=== PATIENT | female | born 1970 | race Caucasian/White ===

== ENCOUNTER 2017-12-08 15:03 | Outpatient (CLI) | payer OTHER ==
[~2017-12-08 15:03] MED LIST: CALC1TAB PO; EXEM25TA5 PO; VENL-191 PO
[2017-12-08 15:34] LABS: BASOPHILS # (AUTO) 0.1 X10'3 (0-0.2); BASOPHILS % (AUTO) 0.7 % (0-1); EOSINOPHILS # (AUTO) 0.2 X10'3 (0-0.9); EOSINOPHILS % (AUTO) 2.9 % (0-6); HEMATOCRIT 40.2 % (35.0-45.0); HEMOGLOBIN 13.8 g/dl (12.0-16.0); LYMPHOCYTES # (AUTO) 2.7 X10'3 (1.1-4.8); LYMPHOCYTES % (AUTO) 36.2 % (21-51); MEAN CORPUSCULAR HEMOGLOBIN 32.9 PG (27.0-31.0); MEAN CORPUSCULAR HGB CONC 34.3 % (33.0-36.5); MEAN CORPUSCULAR VOLUME 96.2 FL (78-98); MONOCYTES # (AUTO) 0.4 X10'3 (0-0.9); MONOCYTES % (AUTO) 5.5 % (2-12); NEUTROPHILS % (AUTO) 54.7 % (42-75); PLATELET COUNT 348 X10'3 (140-440); RED BLOOD COUNT 4.17 X10'6 (4.20-5.60); RED CELL DISTRIBUTION WIDTH 13.2 % (11.5-14.5); WHITE BLOOD COUNT 7.4 X10'3 (4.5-11.0)
[2017-12-08 15:58] LABS: ALANINE AMINOTRANSFERASE 23 U/L (12-78); ALBUMIN 3.9 G/DL (3.4-5.0); ALBUMIN/GLOBULIN RATIO 1.3 (1.1-1.5); ALKALINE PHOSPHATASE 43 IU/L (46-116); ANION GAP 6 (8-16); ASPARTATE AMINO TRANSFERASE 14 U/L (10-37); BILIRUBIN,TOTAL 0.2 MG/DL (0.1-1.0); BLOOD UREA NITROGEN 12 MG/DL (7-18); BUN/CREATININE RATIO 11.9 (6.6-38.0); CALCIUM 9.1 MG/DL (8.5-10.1); CHLORIDE 105 MMOL/L (99-107); CREATININE 1.01 MG/DL (0.40-0.90); GLUCOSE 106 MG/DL (70-104); SODIUM 143 MMOL/L (135-145); TOTAL CARBON DIOXIDE 31.6 MMOL/L (24-32); eGFR 58 ML/MIN
== END 2017-12-08 23:59 | disposition home or self-care (01) ==
LOC: LAB 15:03
PROVIDERS: ATTEND Internal Medicine
DX: M85.80 Other specified disorders of bone density and structure, unspecified site (principal); Z85.3 Personal history of malignant neoplasm of breast
CPT/HCPCS: 36415; 80053; 85025

== ENCOUNTER 2018-01-02 11:19 | Day surgery (SDC) | payer OTHER ==
[~2018-01-02] VITALS: Ht 163.8 cm; Wt 68.0 kg
[2018-01-02] MEDS ORDERED: DENOSUMAB 60 MG/ML inj. SQ ONE (11:45)
[2018-01-02] MEDS ORDERED: diphenhydrAMINE 50 mg/ml inj IV PRN (11:45)
[2018-01-02] MEDS ORDERED: methylPREDNISolone sod succ 125mg/2ml vial IV PRN (11:50)
[2018-01-02] MEDS ORDERED: hydrocortisone sod succ/PF 100mg/2ml inj. IV PRN (11:50)
[2018-01-02 12:14] VITALS: BP 134/79
[2018-01-02 12:25] VITALS: BP 134/79
== END 2018-01-02 12:30 | disposition home or self-care (01) ==
LOC: SSTAY O 11:19
PROVIDERS: ATTEND Internal Medicine
DX: M85.80 Other specified disorders of bone density and structure, unspecified site (principal); F32.9 Major depressive disorder, single episode, unspecified; Z85.3 Personal history of malignant neoplasm of breast
CPT/HCPCS: 96372; J0897

== ENCOUNTER 2018-08-24 15:52 | Day surgery (SDC) | payer OTHER ==
[~2018-08-24] VITALS: Ht 162.6 cm; Wt 72.0 kg
[2018-08-24] MEDS ORDERED: hydrocortisone sod succ/PF 100mg/2ml inj. IV PRN (16:25)
[2018-08-24] MEDS ORDERED: DENOSUMAB 60 MG/ML inj. SQ ONE (16:25)
[2018-08-24] MEDS ORDERED: methylPREDNISolone sod succ 125mg/2ml vial IV PRN (16:25)
[2018-08-24] MEDS ORDERED: diphenhydrAMINE 50 mg/ml inj IV PRN (16:25)
[2018-08-24 16:57] VITALS: BP 135/82
[2018-08-24] MEDS ORDERED: CHOL10002 PO (16:59)
== END 2018-08-24 17:18 | disposition home or self-care (01) ==
LOC: SSTAY O 15:52
PROVIDERS: ATTEND Internal Medicine
DX: M85.80 Other specified disorders of bone density and structure, unspecified site (principal); G64 Other disorders of peripheral nervous system; F32.1 Major depressive disorder, single episode, moderate; C50.912 Malignant neoplasm of unspecified site of left female breast
CPT/HCPCS: 96372; J0897

== ENCOUNTER 2018-10-17 10:28 | Outpatient (CLI) | payer OTHER ==
[~2018-10-17 10:28] MED LIST changes: +CHOL10002 PO
== END 2018-10-17 23:59 | disposition home or self-care (01) ==
LOC: RAD 10:28
PROVIDERS: ATTEND Specialist
DX: M51.36 Other intervertebral disc degeneration, lumbar region (principal); M41.86 Other forms of scoliosis, lumbar region; Z87.891 Personal history of nicotine dependence; Z91.048 Other nonmedicinal substance allergy status; Z88.1 Allergy status to other antibiotic agents; Z88.6 Allergy status to analgesic agent
CPT/HCPCS: 72110

== ENCOUNTER 2018-12-28 09:37 | Day surgery (SDC) | payer OTHER ==
[2018-12-26 14:41] LABS: CLARITY,URINE CLEAR (Clear); COLOR,URINE STRAW (Yellow); GLUCOSE, URINE NEGATIVE (Neg); KETONES,URINE NEGATIVE (Neg); LEUKOCYTE ESTERASE ,URINE NEGATIVE (Neg); NITRITES, URINE NEGATIVE (Neg); OCCULT BLOOD,URINE TRACE-INTACT (Neg); PROTEIN,URINE NEGATIVE (Neg); UROBILINOGEN,URINE 0.2 E.U/dL (0.2-1.0)
[2018-12-26 15:04] LABS: UA COLLECTION TYPE VOIDED
[2018-12-26 15:08] LABS: BASOPHILS % (AUTO) 0.1 % (0-1); EOSINOPHILS # (AUTO) 0.1 X10'3 (0-0.9); EOSINOPHILS % (AUTO) 1.7 % (0-6); LYMPHOCYTES # (AUTO) 2.2 X10'3 (1.1-4.8); LYMPHOCYTES % (AUTO) 29.5 % (21-51); MEAN CORPUSCULAR HEMOGLOBIN 34.1 PG (27.0-31.0); MEAN CORPUSCULAR HGB CONC 34.5 g/dL (33.0-36.5); MEAN CORPUSCULAR VOLUME 98.8 FL (78-98); MEAN PLATELET VOLUME 7.7 FL (7.4-10.4); MONOCYTES # (AUTO) 0.5 X10'3 (0-0.9); MONOCYTES % (AUTO) 6.7 % (2-12); NEUTROPHILS # (AUTO) 4.7 X10'3 (1.8-7.7); PRE OP HEMATOCRIT 40.8 % (35.0-45.0); PRE OP HEMOGLOBIN 14.1 g/dL (12.0-16.0); PRE OP PLATELET COUNT 349 X10'3 (140-440); PRE OP PROTIME 10.1 SECONDS (9.0-12.0); RED BLOOD COUNT 4.13 X10'6 (4.20-5.60); RED CELL DISTRIBUTION WIDTH 14.3 % (11.5-14.5)
[2018-12-26 15:14] LABS: ALBUMIN 3.7 G/DL (3.4-5.0); ALKALINE PHOSPHATASE 40 IU/L (46-116); BLOOD UREA NITROGEN 17 MG/DL (7-18); BUN/CREATININE RATIO 19.5 (6.6-38.0); CALCIUM 9.6 MG/DL (8.5-10.1); CHLORIDE 99 MMOL/L (99-107); CREATININE 0.87 MG/DL (0.40-0.90); PRE OP ALT 25 U/L (30-65); PRE OP ANION GAP 11 (8-16); PRE OP AST 16 U/L (10-37); PRE OP BILIRUB, TOTAL 0.3 MG/DL (0.0-1.0); PRE OP GLUCOSE 105 MG/DL (70-104); PRE OP SODIUM 140 MMOL/L (135-145); TOTAL PROTEIN 7.5 G/DL (6.4-8.2); eGFR 69 ML/MIN
[2018-12-26 15:21] LABS: BACTERIA,URINE NONE SEEN /HPF (Neg); RBC,URINE 0-2 /HPF (0-2); SQUAMOUS EPITHELIAL CELL,UR FEW /LPF (FEW); WBC,URINE NONE SEEN /HPF (0-4)
[2018-12-28] VITALS (10 sets, daily range): BP systolic 122–161; BP diastolic 70–104
[~2018-12-28] VITALS: Ht 162.6 cm; Wt 67.7 kg
[~2018-12-28 09:37] MED LIST changes: +GABA300C PO; +HYDR-4353 PO; +IBUP-1984 PO; +LIDOcaine/PRILOcaine 5gm cream TP ONE; +RANI150T44 PO; +VANCOMYCIN INJ 1000 MG in NORMAL SALINE 250ml IV.SOLN IV ONE; -VENL-191 PO; +VENL37.589 PO; +ceFAZolin inj. 2,000 MG in dextrose 5%-water 100 ML IV ONE; +famotidine 20mg tablet PO ONE; +ringers solution, lacted 1,000 ML IV SCH
[2018-12-28] MEDS ORDERED: meperidine/PF 25mg/ml syringe IV STA (10:34)
[2018-12-28] MEDS ORDERED: Thrombin (Bovine) 5,000 unit vial TP ONE (11:37)
[2018-12-28] MEDS ORDERED: ceFAZolin 1000mg inj ONE (11:37)
[2018-12-28] MEDS ORDERED: gelatin sponge, absorbable (Gelfoam 100) sponge TP ONE (11:37)
[2018-12-28] MEDS ORDERED: midazolam 2 mg/2 ml injection ONE (11:46)
[2018-12-28] MEDS ORDERED: fentaNYL /PF 50mcg/ml 5ml ampule ONE (11:46)
[2018-12-28] MEDS ORDERED: rocuronium 10mg/ml inj IV ONE (11:51)
[2018-12-28] MEDS ORDERED: propofol inj 20 ML IV ONE (11:51)
[2018-12-28] MEDS ORDERED: LIDOcaine 2% (20mg/ml) 5ml vial ONE (11:51)
[2018-12-28] MEDS ORDERED: methylPREDNISolone sod succ 125mg/2ml vial ONE (13:38)
[2018-12-28] MEDS ORDERED: BUPIVAcaine/PF 2.5mg/ml (0.25%) 10ml vial ONE (14:49)
--- NOTE | 2018-12-28 15:15 | NUR ---
Received from OR via BED, accompanied by Anesthesiologist DR FORREST and report given by Anesthesiolgist. PT DROWSY, APPROPRIATE, DENIES PAIN, IRIZARRY'S. Addendum: 12/28/18 at 1536 by Zunilda Chin RN Amended: Links added.
[2018-12-28] MEDS ORDERED: glycopyrrolate 0.2mg/ml inj ONE (15:30)
[2018-12-28] MEDS ORDERED: dexamethasone sod phosphate 4mg/ml inj. ONE (15:30)
[2018-12-28] MEDS ORDERED: neostigmine methylsulfate 1 MG/ML 10ml vial ONE (15:30)
[2018-12-28] MEDS ORDERED: ondansetron/PF 4mg/2ml inj ONE (15:30)
[2018-12-28] MEDS ORDERED: ePHEDrine 50MG/ML INJ. ONE (15:30)
[2018-12-28] MEDS ORDERED: ringers solution, lacted 1,000 ML IV SCH (15:41)
[2018-12-28] MEDS ORDERED: HYDROmorphone inj. 0.5 MG/0.5 ML DISP.SYRIN IV PRN ×2 (15:45)
[2018-12-28] MEDS ORDERED: ketorolac trometh. 30mg/ml inj. IV ONE (15:45)
[2018-12-28] MEDS ORDERED: meperidine/PF 25mg/ml syringe IV PRN ×2 (15:45)
[2018-12-28] MEDS ORDERED: ondansetron/PF 4mg/2ml inj IV PRN (15:45)
[2018-12-28] MEDS ORDERED: HYDROcodone/acetaminophen 10/325mg tab PO ONE (16:30)
== END 2018-12-28 16:45 | disposition home or self-care (01) ==
LOC: PAS 09:37
PROVIDERS: ATTEND Orthopaedic Surgery Orthopaedic Surgery of the Spine
DX: M47.26 Other spondylosis with radiculopathy, lumbar region (principal); M48.061 Spinal stenosis, lumbar region without neurogenic claudication; F17.210 Nicotine dependence, cigarettes, uncomplicated; M71.38 Other bursal cyst, other site; G62.9 Polyneuropathy, unspecified; Z90.10 Acquired absence of unspecified breast and nipple; Z98.890 Other specified postprocedural states; Z85.3 Personal history of malignant neoplasm of breast
CPT/HCPCS: 36415; 63047; 71046; 72100; 76000; 80053; 81001; 82948; 85025; 85610; 85730; 93005; J0690; J1100; J1885; J2001; J2175; J2250; J2405; J2704; J2710; J2930; J3010; J3370; J3490; J7060; J7120; A6196; A7000

== ENCOUNTER 2019-02-15 13:59 | Outpatient (CLI) | payer OTHER ==
[~2019-02-15 13:59] MED LIST changes: -LIDOcaine/PRILOcaine 5gm cream TP ONE; -VANCOMYCIN INJ 1000 MG in NORMAL SALINE 250ml IV.SOLN IV ONE; -ceFAZolin inj. 2,000 MG in dextrose 5%-water 100 ML IV ONE; -famotidine 20mg tablet PO ONE; -ringers solution, lacted 1,000 ML IV SCH
[2019-02-15 14:45] LABS: BASOPHILS % (AUTO) 0.5 % (0-1); EOSINOPHILS # (AUTO) 0.1 X10'3 (0-0.9); EOSINOPHILS % (AUTO) 1.9 % (0-6); HEMATOCRIT 38.2 % (35.0-45.0); HEMOGLOBIN 13.5 g/dl (12.0-16.0); LYMPHOCYTES # (AUTO) 2.3 X10'3 (1.1-4.8); LYMPHOCYTES % (AUTO) 35.2 % (21-51); MEAN CORPUSCULAR HEMOGLOBIN 34.5 PG (27.0-31.0); MEAN CORPUSCULAR HGB CONC 35.2 g/dL (33.0-36.5); MEAN CORPUSCULAR VOLUME 97.9 FL (78-98); MEAN PLATELET VOLUME 7.9 FL (7.4-10.4); MONOCYTES # (AUTO) 0.6 X10'3 (0-0.9); NEUTROPHILS # (AUTO) 3.6 X10'3 (1.8-7.7); NEUTROPHILS % (AUTO) 53.4 % (42-75); PLATELET COUNT 368 X10'3 (140-440); RED CELL DISTRIBUTION WIDTH 12.7 % (11.5-14.5); WHITE BLOOD COUNT 6.7 X10'3 (4.5-11.0)
[2019-02-15 14:58] LABS: ALANINE AMINOTRANSFERASE 27 U/L (12-78); ALBUMIN 3.4 G/DL (3.4-5.0); ALBUMIN/GLOBULIN RATIO 0.9 (1.1-1.5); ALKALINE PHOSPHATASE 63 IU/L (46-116); ANION GAP 7 (8-16); ASPARTATE AMINO TRANSFERASE 18 U/L (10-37); BILIRUBIN,TOTAL 0.2 MG/DL (0.1-1.0); BLOOD UREA NITROGEN 16 MG/DL (7-18); BUN/CREATININE RATIO 17.2 (6.6-38.0); CALCIUM 9.4 MG/DL (8.5-10.1); CHLORIDE 104 MMOL/L (99-107); CREATININE 0.93 MG/DL (0.40-0.90); GLUCOSE 83 MG/DL (70-104); POTASSIUM 3.8 MMOL/L (3.5-5.1); SODIUM 143 MMOL/L (135-145); TOTAL CARBON DIOXIDE 32.5 MMOL/L (24-32); eGFR 64 ML/MIN
== END 2019-02-15 23:59 | disposition home or self-care (01) ==
LOC: LAB 13:59
PROVIDERS: ATTEND Internal Medicine
DX: C50.912 Malignant neoplasm of unspecified site of left female breast (principal); M85.80 Other specified disorders of bone density and structure, unspecified site; Z87.891 Personal history of nicotine dependence; Z79.899 Other long term (current) drug therapy; Z85.3 Personal history of malignant neoplasm of breast; Z90.10 Acquired absence of unspecified breast and nipple
CPT/HCPCS: 36415; 80053; 82306; 85025

== ENCOUNTER 2019-08-23 15:50 | Outpatient (CLI) | payer OTHER ==
[~2019-08-23 15:50] MED LIST changes: +RANI-648 PO; -RANI150T44 PO; +UBID1CAP54 PO
[2019-08-23 16:27] LABS: ALANINE AMINOTRANSFERASE 30 U/L (12-78); ALBUMIN 3.8 G/DL (3.4-5.0); ALKALINE PHOSPHATASE 53 IU/L (46-116); ANION GAP 9 (8-16); ASPARTATE AMINO TRANSFERASE 20 U/L (10-37); BILIRUBIN,TOTAL 0.3 MG/DL (0.1-1.0); BLOOD UREA NITROGEN 15 MG/DL (7-18); BUN/CREATININE RATIO 16.7 (6.6-38.0); CALCIUM 9.4 MG/DL (8.5-10.1); CHLORIDE 103 MMOL/L (99-107); GLUCOSE 105 MG/DL (70-104); POTASSIUM 4.2 MMOL/L (3.5-5.1); SODIUM 141 MMOL/L (135-145); TOTAL CARBON DIOXIDE 28.7 MMOL/L (24-32); TOTAL PROTEIN 7.7 G/DL (6.4-8.2); eGFR 66 ML/MIN
== END 2019-08-23 23:59 | disposition home or self-care (01) ==
LOC: LAB 15:50
PROVIDERS: ATTEND Internal Medicine
DX: C50.912 Malignant neoplasm of unspecified site of left female breast (principal); M85.88 Other specified disorders of bone density and structure, other site
CPT/HCPCS: 36415; 80053; 82306

== ENCOUNTER 2019-10-18 10:18 | Day surgery (SDC) | payer OTHER ==
[2019-10-18] MEDS ORDERED: DENOSUMAB 60 MG/ML inj. SQ ONE (10:30)
[2019-10-18 10:47] VITALS: BP 140/82
== END 2019-10-18 10:58 | disposition home or self-care (01) ==
LOC: PAS 10:18
PROVIDERS: ATTEND Internal Medicine
DX: M85.88 Other specified disorders of bone density and structure, other site (principal)
CPT/HCPCS: 96372; J0897

== ENCOUNTER 2020-05-01 14:06 | Outpatient (CLI) | payer OTHER ==
[~2020-05-01 14:06] MED LIST changes: -HYDR-4353 PO; -IBUP-1984 PO; -RANI-648 PO
[2020-05-01 16:27] LABS: ALANINE AMINOTRANSFERASE 54 U/L (12-78); ALBUMIN 3.5 G/DL (3.4-5.0); ALKALINE PHOSPHATASE 42 IU/L (46-116); ANION GAP 7 (8-16); ASPARTATE AMINO TRANSFERASE 39 U/L (10-37); BILIRUBIN,TOTAL 0.5 MG/DL (0.1-1.0); BLOOD UREA NITROGEN 17 MG/DL (7-18); BUN/CREATININE RATIO 16.5 (6.6-38.0); CALCIUM 9.2 MG/DL (8.5-10.1); CHLORIDE 105 MMOL/L (99-107); CREATININE 1.03 MG/DL (0.40-0.90); GLUCOSE 102 MG/DL (70-104); POTASSIUM 4.1 MMOL/L (3.5-5.1); SODIUM 142 MMOL/L (135-145); TOTAL CARBON DIOXIDE 29.8 MMOL/L (24-32); eGFR 56 ML/MIN
== END 2020-05-01 23:59 | disposition home or self-care (01) ==
LOC: LAB 14:06
PROVIDERS: ATTEND Internal Medicine
DX: C50.912 Malignant neoplasm of unspecified site of left female breast (principal)
CPT/HCPCS: 36415; 80053

== ENCOUNTER 2021-05-21 13:08 | Outpatient (CLI) | payer BC ==
[2021-05-21 14:01] LABS: ALANINE AMINOTRANSFERASE 50 U/L (12-78); ALBUMIN 3.6 G/DL (3.4-5.0); ALBUMIN/GLOBULIN RATIO 0.9 (1.1-1.5); ALKALINE PHOSPHATASE 74 IU/L (46-116); ASPARTATE AMINO TRANSFERASE 44 U/L (10-37); BILIRUBIN,TOTAL 0.6 MG/DL (0.1-1.0); TOTAL PROTEIN 7.7 G/DL (6.4-8.2)
[2021-05-21 14:04] LABS: BILIRUBIN,DIRECT 0.4 MG/DL (0-0.3)
== END 2021-05-21 23:59 | disposition home or self-care (01) ==
LOC: LAB 13:08
PROVIDERS: ATTEND Internal Medicine
DX: C50.912 Malignant neoplasm of unspecified site of left female breast (principal); I71.9 Aortic aneurysm of unspecified site, without rupture
CPT/HCPCS: 36415; 80076

== ENCOUNTER 2021-11-18 11:47 | Outpatient (CLI) | payer BC ==
[2021-11-18 12:42] LABS: ALANINE AMINOTRANSFERASE 48 U/L (12-78); ALKALINE PHOSPHATASE 65 IU/L (46-116); ASPARTATE AMINO TRANSFERASE 51 U/L (10-37); BILIRUBIN,DIRECT 0.3 MG/DL (0-0.3); BILIRUBIN,TOTAL 0.7 MG/DL (0.1-1.0)
== END 2021-11-18 23:59 | disposition home or self-care (01) ==
LOC: LAB 11:47
PROVIDERS: ATTEND Internal Medicine
DX: C50.912 Malignant neoplasm of unspecified site of left female breast (principal)
CPT/HCPCS: 36415; 80076; 82306

== ENCOUNTER 2022-05-13 14:09 | Outpatient (CLI) | payer BC | END 2022-05-13 23:59 | disposition home or self-care (01) | LOC: RAD 14:09 | PROVIDERS: ATTEND Family Medicine | DX: M47.816 Spondylosis without myelopathy or radiculopathy, lumbar region (principal); M41.86 Other forms of scoliosis, lumbar region; M51.36 Other intervertebral disc degeneration, lumbar region; M12.88 Other specific arthropathies, not elsewhere classified, other specified site | CPT/HCPCS: 72100 ==

== ENCOUNTER 2022-06-03 10:51 | Outpatient (CLI) | payer BC ==
[2022-06-03 11:34] LABS: ALANINE AMINOTRANSFERASE 58 U/L (12-78); ALBUMIN/GLOBULIN RATIO 1.1 (1.1-1.5); ALKALINE PHOSPHATASE 62 IU/L (46-116); ASPARTATE AMINO TRANSFERASE 50 U/L (10-37); BILIRUBIN,DIRECT 0.3 MG/DL (0-0.3); BILIRUBIN,TOTAL 0.8 MG/DL (0.1-1.0); TOTAL PROTEIN 7.7 G/DL (6.4-8.2)
== END 2022-06-03 23:59 | disposition home or self-care (01) ==
LOC: LAB 10:51
PROVIDERS: ATTEND Internal Medicine Hematology & Oncology
DX: C50.912 Malignant neoplasm of unspecified site of left female breast (principal)
CPT/HCPCS: 36415; 80076

== ENCOUNTER 2022-06-10 12:54 | Outpatient (CLI) | payer BC ==
[2022-06-10] MEDS ORDERED: GADOTERATE MEGLUMINE 10 MMOL/20 ML SYRINGE IV ONE (18:23)
== END 2022-06-10 23:59 | disposition home or self-care (01) ==
LOC: RAD 12:54
PROVIDERS: ATTEND Family Medicine
DX: M47.816 Spondylosis without myelopathy or radiculopathy, lumbar region (principal); M48.061 Spinal stenosis, lumbar region without neurogenic claudication; M43.16 Spondylolisthesis, lumbar region; M51.25 Other intervertebral disc displacement, thoracolumbar region
CPT/HCPCS: 72158; A9575

== ENCOUNTER 2024-07-13 06:52 | Emergency (ER) | payer BC, OTHER ==
[~2024-07-13] VITALS: Ht 165.1 cm; Wt 57.9 kg
[2024-07-13 06:57] VITALS: TEMP 98
[2024-07-13 07:59] LABS: BASOPHILS % (AUTO) 0.4 % (0-1); EOSINOPHILS % (AUTO) 0 % (0-6); HEMATOCRIT 37.3 % (35.0-45.0); HEMOGLOBIN 12.8 g/dl (12.0-16.0); LYMPHOCYTES # (AUTO) 0.7 X10'3 (1.1-4.8); LYMPHOCYTES % (AUTO) 7.5 % (21-51); MEAN CORPUSCULAR HEMOGLOBIN 36.3 PG (27.0-31.0); MEAN CORPUSCULAR HGB CONC 34.3 g/dL (33.0-36.5); MEAN PLATELET VOLUME 8.4 FL (7.4-10.4); MONOCYTES # (AUTO) 0.6 X10'3 (0-0.9); MONOCYTES % (AUTO) 6.4 % (2-12); NEUTROPHILS % (AUTO) 85.7 % (42-75); PLATELET COUNT 330 X10'3 (140-440); RED BLOOD COUNT 3.52 X10'6 (4.20-5.60); RED CELL DISTRIBUTION WIDTH 16.9 % (11.5-14.5); WHITE BLOOD COUNT 9.4 X10'3 (4.5-11.0)
[2024-07-13] MEDS ORDERED: LIDOcaine 1% W/epiNEPHrine 1:100,000 20ml vial SQ ONE (08:00)
[2024-07-13 08:06] LABS: ALANINE AMINOTRANSFERASE 45 U/L (12-78); ALBUMIN 3.6 G/DL (3.4-5.0); ALBUMIN/GLOBULIN RATIO 0.9 (1.1-1.5); ALKALINE PHOSPHATASE 109 IU/L (46-116); ANION GAP 22 (8-16); ASPARTATE AMINO TRANSFERASE 95 U/L (10-37); BILIRUBIN,TOTAL 1.2 MG/DL (0.1-1.0); BLOOD UREA NITROGEN 8 MG/DL (7-18); BUN/CREATININE RATIO 11.4 (10.0-20.0); CALCIUM 9.6 MG/DL (8.5-10.1); CHLORIDE 91 MMOL/L (99-107); GLUCOSE 165 MG/DL (70-104); LIPASE 48 U/L (16-77); SODIUM 135 MMOL/L (135-145); TOTAL CARBON DIOXIDE 22.1 MMOL/L (24-32); TOTAL PROTEIN 7.5 G/DL (6.4-8.2); eCRCL 82 ML/MIN; eGFR 87 ML/MIN
[2024-07-13] MEDS: normal saline 1000ml 1,000 ML IV ONE (08:34)
[2024-07-13] MEDS: ondansetron/PF 4mg/2ml inj IV ONE ×2 (08:34→12:12)
[2024-07-13] MEDS ORDERED: CALC500T13 PO (08:57)
[2024-07-13] MEDS: ringers solution, lacted 1,000 ML IV ONE (10:57)
[2024-07-13] MEDS ORDERED: ONDA-243 PO (11:35)
[2024-07-13 12:31] VITALS: BP 139/80; PULSE 75; RESP 14; O2SAT 97
== END 2024-07-13 12:35 | disposition home or self-care (01) ==
LOC: ER 06:52
DX: R11.10 Vomiting, unspecified (principal); R10.13 Epigastric pain; E78.00 Pure hypercholesterolemia, unspecified; Z88.1 Allergy status to other antibiotic agents; Z91.048 Other nonmedicinal substance allergy status; Z79.899 Other long term (current) drug therapy
CPT/HCPCS: 36415; 76700; 80053; 83690; 85025; 93005; 96361; 96374; 96376; 99285; J2405; J7030; J7120; 96375

== ENCOUNTER 2024-07-18 08:03 | Emergency (ER) | payer OTHER ==
[~2024-07-18] VITALS: Ht 165.1 cm; Wt 57.9 kg
[~2024-07-18 08:03] MED LIST changes: -CALC1TAB PO; +CALC500T13 PO; -CHOL10002 PO; -EXEM25TA5 PO; -GABA300C PO; +ONDA-243 PO; -UBID1CAP54 PO; -VENL37.589 PO
[2024-07-18 10:06] LABS: BASOPHILS % (AUTO) 0.4 % (0-1); EOSINOPHILS % (AUTO) 0.1 % (0-6); HEMATOCRIT 38.1 % (35.0-45.0); HEMOGLOBIN 13.2 g/dl (12.0-16.0); LYMPHOCYTES % (AUTO) 9.9 % (21-51); MEAN CORPUSCULAR HEMOGLOBIN 36.2 PG (27.0-31.0); MEAN CORPUSCULAR HGB CONC 34.5 g/dL (33.0-36.5); MEAN CORPUSCULAR VOLUME 104.8 FL (78-98); MEAN PLATELET VOLUME 8.1 FL (7.4-10.4); MONOCYTES # (AUTO) 0.6 X10'3 (0-0.9); MONOCYTES % (AUTO) 6.2 % (2-12); NEUTROPHILS # (AUTO) 8.5 X10'3 (1.8-7.7); NEUTROPHILS % (AUTO) 83.4 % (42-75); PLATELET COUNT 362 X10'3 (140-440); RED BLOOD COUNT 3.64 X10'6 (4.20-5.60); RED CELL DISTRIBUTION WIDTH 16.7 % (11.5-14.5); WHITE BLOOD COUNT 10.2 X10'3 (4.5-11.0)
[2024-07-18 10:41] LABS: ALANINE AMINOTRANSFERASE 47 U/L (12-78); ALBUMIN 3.4 G/DL (3.4-5.0); ALBUMIN/GLOBULIN RATIO 0.9 (1.1-1.5); ALKALINE PHOSPHATASE 108 IU/L (46-116); ANION GAP 19 (8-16); ASPARTATE AMINO TRANSFERASE 79 U/L (10-37); BILIRUBIN,TOTAL 1.2 MG/DL (0.1-1.0); BLOOD UREA NITROGEN 9 MG/DL (7-18); BUN/CREATININE RATIO 13.2 (10.0-20.0); CALCIUM 9.5 MG/DL (8.5-10.1); CHLORIDE 95 MMOL/L (99-107); CREATININE 0.68 MG/DL (0.40-0.90); GLUCOSE 108 MG/DL (70-104); LIPASE 37 U/L (16-77); POTASSIUM 3.3 MMOL/L (3.5-5.1); SODIUM 139 MMOL/L (135-145); TOTAL CARBON DIOXIDE 24.7 MMOL/L (24-32); TOTAL PROTEIN 7.4 G/DL (6.4-8.2); eCRCL 84 ML/MIN; eGFR 90 ML/MIN
[2024-07-18] MEDS: proCHLORperazine 10 MG/2 ml inj IV ONE (10:48)
[2024-07-18] MEDS: ketorolac trometh 15mg/ml vial 15 MG/ML ML IV ONE (10:48)
[2024-07-18] MEDS: normal saline 1000ML IV soln IVB ONE (10:48)
[2024-07-18] MEDS: diphenhydrAMINE 50 mg/ml inj IV ONE (10:48)
[2024-07-18] MEDS ORDERED: iohexol 350MG/ML 100ml bottle IV ONE (10:55)
[2024-07-18] MEDS ORDERED: GADOTERATE MEGLUMINE 7.5 MMOL/15 ML VIAL IV ONE (13:49)
[2024-07-18 14:33] VITALS: TEMP 98.2
[2024-07-18] MEDS: normal saline 1000ml 1,000 ML IV ONE (14:49)
[2024-07-18 16:03] LABS: BILIRUBIN,URINE SMALL (Neg); CLARITY,URINE CLEAR (Clear); COLOR,URINE YELLOW (Yellow); GLUCOSE, URINE NEGATIVE (Neg); KETONES,URINE 15 mg/dl (Neg); LEUKOCYTE ESTERASE ,URINE NEGATIVE (Neg); NITRITES, URINE NEGATIVE (Neg); OCCULT BLOOD,URINE NEGATIVE (Neg); PROTEIN,URINE NEGATIVE (Neg); UA COLLECTION TYPE CLN CATCH MIDSTREAM
[2024-07-18 16:46] VITALS: BP 142/75; PULSE 71; RESP 18; O2SAT 98
[2024-07-18] MEDS ORDERED: PHE12.5R RC (16:51)
[2024-07-18] MEDS ORDERED: ONDA-243 PO (16:51)
== END 2024-07-18 17:10 | disposition home or self-care (01) ==
LOC: ER 08:04
DX: H81.10 Benign paroxysmal vertigo, unspecified ear (principal); G43.809 Other migraine, not intractable, without status migrainosus; E78.00 Pure hypercholesterolemia, unspecified; Z88.1 Allergy status to other antibiotic agents; Z91.048 Other nonmedicinal substance allergy status; Z79.899 Other long term (current) drug therapy
CPT/HCPCS: 36415; 70450; 70496; 70498; 70553; 80053; 81003; 83690; 85025; 96361; 96374; 96375; 99285; A9575; J0780; J1200; J1885; J7030; Q9967

== ENCOUNTER 2024-07-23 14:33 | Inpatient (IN) | payer OTHER ==
[~2024-07-23] VITALS: Ht 167.6 cm; Wt 58.0 kg
[~2024-07-23 14:33] MED LIST changes: +PHE12.5R RC
[2024-07-23 14:55] LABS: BASOPHILS % (AUTO) 0.2 % (0-1); EOSINOPHILS % (AUTO) 0 % (0-6); HEMATOCRIT 42.9 % (35.0-45.0); HEMOGLOBIN 14.7 g/dl (12.0-16.0); MEAN CORPUSCULAR HEMOGLOBIN 35.8 PG (27.0-31.0); MEAN CORPUSCULAR HGB CONC 34.3 g/dL (33.0-36.5); MEAN CORPUSCULAR VOLUME 104.2 FL (78-98); MEAN PLATELET VOLUME 7.8 FL (7.4-10.4); MONOCYTES # (AUTO) 1.1 X10'3 (0-0.9); MONOCYTES % (AUTO) 6.9 % (2-12); NEUTROPHILS # (AUTO) 14.2 X10'3 (1.8-7.7); NEUTROPHILS % (AUTO) 86.9 % (42-75); PLATELET COUNT 405 X10'3 (140-440); RED BLOOD COUNT 4.11 X10'6 (4.20-5.60); RED CELL DISTRIBUTION WIDTH 17.5 % (11.5-14.5); WHITE BLOOD COUNT 16.3 X10'3 (4.5-11.0)
[2024-07-23 15:13] LABS: ALBUMIN 3.2 G/DL (3.4-5.0); ANION GAP 22 (8-16); BLOOD UREA NITROGEN 13 MG/DL (7-18); BUN/CREATININE RATIO 14.1 (10.0-20.0); CALCIUM 9.7 MG/DL (8.5-10.1); CHLORIDE 101 MMOL/L (99-107); CREATINE KINASE 293 U/L (26-192); CREATININE 0.92 MG/DL (0.40-0.90); GLUCOSE 167 MG/DL (70-104); POTASSIUM 3.4 MMOL/L (3.5-5.1); SALICYLATE 2.2 MG/DL (4.0-20.0); SODIUM 141 MMOL/L (135-145); TOTAL CARBON DIOXIDE 18.5 MMOL/L (24-32); eCRCL 63 ML/MIN; eGFR 63 ML/MIN
[2024-07-23 15:16] LABS: ACETAMINOPHEN < 2.0 UG/ML (10-30); ETHANOL < 10 MG/DL (<10)
[2024-07-23 15:41] LABS: BILIRUBIN,URINE MODERATE (Neg); CLARITY,URINE CLEAR (Clear); COLOR,URINE AMBER (Yellow); GLUCOSE, URINE 100 mg/dl (Neg); KETONES,URINE 40 mg/dl (Neg); LEUKOCYTE ESTERASE ,URINE NEGATIVE (Neg); NITRITES, URINE NEGATIVE (Neg); OCCULT BLOOD,URINE NEGATIVE (Neg); PH,URINE 6.5 (4.8-8.0); PROTEIN,URINE NEGATIVE (Neg)
[2024-07-23] MEDS ORDERED: folic acid 1mg/0.2ml inj IV ONE (15:45)
[2024-07-23 15:50] LABS: UA COLLECTION TYPE FOLEY CATH
[2024-07-23 16:10] LABS: URINE AMPHETAMINE SCREEN NEGATIVE (Neg); URINE BARBITUATE SCREEN NEGATIVE (Neg); URINE BENZODIAZEPINES SCREEN NEGATIVE (Neg); URINE CANNABINOID SCREEN NEGATIVE (Neg); URINE COCAINE SCREEN NEGATIVE (Neg); URINE METHADONE SCREEN NEGATIVE (Neg); URINE OPIATE SCREEN NEGATIVE (Neg); URINE PHENCYCLIDINE SCREEN NEGATIVE (Neg)
[2024-07-23 16:20] LABS: MAGNESIUM 1.3 MG/DL (1.5-2.4)
[2024-07-23] MEDS ORDERED: magnesium sulf-water 2g/50mL 50 ML IV PRN (16:25)
[2024-07-23] MEDS ORDERED: mag hydrox/Alum hydrox/simeth 30ml oral suspension PO PRN (16:25)
[2024-07-23] MEDS ORDERED: magnesium hydroxide 30ml (MOM) UD suspension PO PRN (16:25)
[2024-07-23] MEDS ORDERED: potassium Cl 20 mEq SR tablet PO PRN (16:25)
[2024-07-23] MEDS ORDERED: acetaminophen 325mg tablet PO PRN ×2 (16:25)
[2024-07-23] MEDS ORDERED: LORazepam 2 mg/ml vial IV PRN (16:25)
[2024-07-23] MEDS ORDERED: HYDROcodone/acetaminophen 10/325mg tab PO PRN (16:25)
[2024-07-23] MEDS ORDERED: ondansetron/PF 4mg/2ml inj IV PRN (16:25)
[2024-07-23] MEDS: ringers solution, lacted 1,000 ML IV ONE (16:28)
[2024-07-23] MEDS: folic acid 1mg/0.2ml inj IV ONE ×2 (16:45→16:46)
[2024-07-23] MEDS: thiamine 100mg/ml 2ml inj. IV ONE (18:31)
[2024-07-23] MEDS: sodium bicarbonate (8.4%) inj. 100 MEQ in dextrose 5%-water 1,000 ML IV SCH (18:32)
[2024-07-23] MEDS ORDERED: ONDA-243 PO (19:04)
[2024-07-23 20:00] VITALS: RESP 16; O2SAT 99
[2024-07-23] MEDS ORDERED: enoxaparin 30mg/0.3ml syringe SUBCUT SCH (20:00)
[2024-07-23] MEDS: docusate sod 100mg capsule PO SCH (20:00)
[2024-07-23] MEDS: K and/or MAG REPLACEMENT MC SCH (20:00)
[2024-07-23 22:00] VITALS: BP 155/91; PULSE 77; RESP 15; TEMP 96.9; O2SAT 99
[2024-07-24] MEDS: magnesium sulf-water 4G/100mL 100 ML IV PRN (00:07)
[2024-07-24] MEDS: potassium Cl 40MEQ/1/2NS 520ml 520 ML IV PRN (00:32)
[2024-07-24 04:44] LABS: BASOPHILS % (AUTO) 0.3 % (0-1); EOSINOPHILS % (AUTO) 0.3 % (0-6); HEMATOCRIT 34.9 % (35.0-45.0); HEMOGLOBIN 12.2 g/dl (12.0-16.0); LYMPHOCYTES # (AUTO) 1.5 X10'3 (1.1-4.8); MEAN CORPUSCULAR HEMOGLOBIN 36.2 PG (27.0-31.0); MEAN CORPUSCULAR HGB CONC 34.9 g/dL (33.0-36.5); MEAN CORPUSCULAR VOLUME 103.7 FL (78-98); MEAN PLATELET VOLUME 7.8 FL (7.4-10.4); MONOCYTES # (AUTO) 0.8 X10'3 (0-0.9); MONOCYTES % (AUTO) 6.2 % (2-12); NEUTROPHILS # (AUTO) 10.3 X10'3 (1.8-7.7); NEUTROPHILS % (AUTO) 81.2 % (42-75); PLATELET COUNT 281 X10'3 (140-440); RED BLOOD COUNT 3.37 X10'6 (4.20-5.60); RED CELL DISTRIBUTION WIDTH 17.1 % (11.5-14.5); WHITE BLOOD COUNT 12.7 X10'3 (4.5-11.0)
[2024-07-24 04:52] LABS: PROTHROMBIN TIME 10.6 SECONDS (9.0-12.0)
[2024-07-24 04:56] LABS: ALANINE AMINOTRANSFERASE 44 U/L (12-78); ALBUMIN 2.6 G/DL (3.4-5.0); ALBUMIN/GLOBULIN RATIO 0.8 (1.1-1.5); ALKALINE PHOSPHATASE 101 IU/L (46-116); ANION GAP 9 (8-16); ASPARTATE AMINO TRANSFERASE 48 U/L (10-37); BILIRUBIN,TOTAL 1.4 MG/DL (0.1-1.0); BLOOD UREA NITROGEN 6 MG/DL (7-18); BUN/CREATININE RATIO 11.8 (10.0-20.0); CALCIUM 8.6 MG/DL (8.5-10.1); CHLORIDE 104 MMOL/L (99-107); CREATINE KINASE 294 U/L (26-192); CREATININE 0.51 MG/DL (0.40-0.90); GLUCOSE 119 MG/DL (70-104); MAGNESIUM 2.8 MG/DL (1.5-2.4); PHOSPHORUS 2.3 MG/DL (2.3-4.5); POTASSIUM 3.2 MMOL/L (3.5-5.1); SODIUM 141 MMOL/L (135-145); TOTAL CARBON DIOXIDE 28.5 MMOL/L (24-32); TOTAL PROTEIN 5.9 G/DL (6.4-8.2); eCRCL 114 ML/MIN; eGFR > 90 ML/MIN
[2024-07-24 06:42] VITALS: BP 152/91; PULSE 77; RESP 15; TEMP 97.3; O2SAT 99
[2024-07-24] MEDS ORDERED: LIDOcaine 1% 30ml preserv. free vial ONE (12:52)
[2024-07-24] MEDS: lactose-reduced food (Ensure Enlive) - 237ml bottle PO SCH (13:00)
[2024-07-24 14:00] VITALS: BP 159/92; PULSE 85; RESP 16; TEMP 98.1; O2SAT 95
[2024-07-24 18:00] VITALS: BP 120/74; PULSE 76; RESP 18; TEMP 97.2; O2SAT 96
[2024-07-24] MEDS: normal saline 1000ml 1,000 ML IV SCH (19:42)
[2024-07-24 20:00] VITALS: BP_SYST 122; BP_SYST 128; BP_DIAS 73; BP_DIAS 74; PULSE 96
[2024-07-24] MEDS: enoxaparin 40mg/0.4ml syringe SUBCUT SCH (21:37)
[2024-07-24 22:00] VITALS: BP 128/74; PULSE 96; RESP 16; TEMP 98.2; O2SAT 96
[2024-07-25 06:00] VITALS: BP 137/74; PULSE 72; RESP 16; TEMP 97.8; O2SAT 97
[2024-07-25 06:45] LABS: BASOPHILS % (AUTO) 0.2 % (0-1); EOSINOPHILS # (AUTO) 0.1 X10'3 (0-0.9); EOSINOPHILS % (AUTO) 1.1 % (0-6); HEMATOCRIT 30.4 % (35.0-45.0); HEMOGLOBIN 10.6 g/dl (12.0-16.0); LYMPHOCYTES # (AUTO) 1.8 X10'3 (1.1-4.8); LYMPHOCYTES % (AUTO) 21.2 % (21-51); MEAN CORPUSCULAR HEMOGLOBIN 36.1 PG (27.0-31.0); MEAN CORPUSCULAR VOLUME 103.2 FL (78-98); MEAN PLATELET VOLUME 8.1 FL (7.4-10.4); MONOCYTES # (AUTO) 0.6 X10'3 (0-0.9); MONOCYTES % (AUTO) 7.7 % (2-12); NEUTROPHILS # (AUTO) 5.8 X10'3 (1.8-7.7); NEUTROPHILS % (AUTO) 69.8 % (42-75); PLATELET COUNT 221 X10'3 (140-440); RED BLOOD COUNT 2.94 X10'6 (4.20-5.60); RED CELL DISTRIBUTION WIDTH 17.1 % (11.5-14.5); WHITE BLOOD COUNT 8.3 X10'3 (4.5-11.0)
[2024-07-25 06:56] LABS: PROTHROMBIN TIME 11.1 SECONDS (9.0-12.0)
[2024-07-25 07:03] LABS: ALANINE AMINOTRANSFERASE 38 U/L (12-78); ALBUMIN 2.2 G/DL (3.4-5.0); ALBUMIN/GLOBULIN RATIO 0.7 (1.1-1.5); ALKALINE PHOSPHATASE 90 IU/L (46-116); ANION GAP 8 (8-16); ASPARTATE AMINO TRANSFERASE 53 U/L (10-37); BILIRUBIN,TOTAL 1.1 MG/DL (0.1-1.0); BLOOD UREA NITROGEN 2 MG/DL (7-18); BUN/CREATININE RATIO 4.4 (10.0-20.0); CALCIUM 8.2 MG/DL (8.5-10.1); CHLORIDE 109 MMOL/L (99-107); CREATINE KINASE 114 U/L (26-192); CREATININE 0.45 MG/DL (0.40-0.90); GLUCOSE 100 MG/DL (70-104); MAGNESIUM 1.6 MG/DL (1.5-2.4); PHOSPHORUS 2.1 MG/DL (2.3-4.5); POTASSIUM 3.3 MMOL/L (3.5-5.1); SODIUM 147 MMOL/L (135-145); TOTAL CARBON DIOXIDE 30.4 MMOL/L (24-32); TOTAL PROTEIN 5.2 G/DL (6.4-8.2); eCRCL 129 ML/MIN; eGFR > 90 ML/MIN
[2024-07-25 08:00] VITALS: BP 121/79; PULSE 107
[2024-07-25 08:05] VITALS: BP 114/75; PULSE 107
[2024-07-25 10:00] VITALS: BP 121/79; PULSE 107; RESP 16; TEMP 97.7; O2SAT 95
[2024-07-25] MEDS: potassium Cl 20 mEq SR tablet PO PRN (10:23)
[2024-07-25] MEDS: potassium phosphate inj 30 MMOL in normal saline 250ml IV soln 250 ML IV ONE (10:30)
[2024-07-25] MEDS ORDERED: LORazepam 2 mg/ml vial IV PRN (16:25)
[2024-07-25] MEDS ORDERED: LORazepam 1 MG tablet PO PRN (16:25)
[2024-07-25 20:00] VITALS: BP 159/90; PULSE 92; RESP 15; O2SAT 96
[2024-07-25 22:00] VITALS: BP 159/90; PULSE 92; RESP 15; TEMP 98.2; O2SAT 96
[2024-07-26] VITALS (7 sets, daily range): BP systolic 126–195; BP diastolic 77–105; PULSE 76–104; RESP 15–20; TEMP 97.2–97.9; O2SAT 94–96
[2024-07-26 05:27] LABS: BASOPHILS % (AUTO) 0.5 % (0-1); EOSINOPHILS # (AUTO) 0.1 X10'3 (0-0.9); EOSINOPHILS % (AUTO) 1.7 % (0-6); HEMATOCRIT 29.4 % (35.0-45.0); HEMOGLOBIN 10.1 g/dl (12.0-16.0); LYMPHOCYTES # (AUTO) 1.8 X10'3 (1.1-4.8); LYMPHOCYTES % (AUTO) 21.7 % (21-51); MEAN CORPUSCULAR HEMOGLOBIN 36.2 PG (27.0-31.0); MEAN CORPUSCULAR HGB CONC 34.3 g/dL (33.0-36.5); MEAN CORPUSCULAR VOLUME 105.5 FL (78-98); MEAN PLATELET VOLUME 8.7 FL (7.4-10.4); MONOCYTES # (AUTO) 0.7 X10'3 (0-0.9); NEUTROPHILS # (AUTO) 5.8 X10'3 (1.8-7.7); NEUTROPHILS % (AUTO) 68.1 % (42-75); PLATELET COUNT 230 X10'3 (140-440); RED BLOOD COUNT 2.79 X10'6 (4.20-5.60); RED CELL DISTRIBUTION WIDTH 17.6 % (11.5-14.5); WHITE BLOOD COUNT 8.5 X10'3 (4.5-11.0)
[2024-07-26 05:33] LABS: INR 1.1 INR; PROTHROMBIN TIME 11.4 SECONDS (9.0-12.0)
[2024-07-26 05:39] LABS: ALANINE AMINOTRANSFERASE 42 U/L (12-78); ALBUMIN 2.2 G/DL (3.4-5.0); ALBUMIN/GLOBULIN RATIO 0.7 (1.1-1.5); ALKALINE PHOSPHATASE 88 IU/L (46-116); ANION GAP 10 (8-16); ASPARTATE AMINO TRANSFERASE 55 U/L (10-37); BILIRUBIN,TOTAL 0.8 MG/DL (0.1-1.0); BLOOD UREA NITROGEN 3 MG/DL (7-18); BUN/CREATININE RATIO 6.1 (10.0-20.0); CALCIUM 8.5 MG/DL (8.5-10.1); CHLORIDE 109 MMOL/L (99-107); CREATINE KINASE 79 U/L (26-192); CREATININE 0.49 MG/DL (0.40-0.90); GLUCOSE 94 MG/DL (70-104); MAGNESIUM 1.2 MG/DL (1.5-2.4); PHOSPHORUS 4.3 MG/DL (2.3-4.5); POTASSIUM 4.1 MMOL/L (3.5-5.1); SODIUM 145 MMOL/L (135-145); TOTAL CARBON DIOXIDE 26.5 MMOL/L (24-32); TOTAL PROTEIN 5.3 G/DL (6.4-8.2); eCRCL 119 ML/MIN; eGFR > 90 ML/MIN
[2024-07-26] MEDS ORDERED: LORazepam 2 mg/ml vial IV PRN (09:55)
[2024-07-26] MEDS: lisinopril 10 MG tablet PO SCH (18:05)
[2024-07-26] MEDS: amLODIPine 5mg tablet PO SCH (18:05)
[2024-07-26] MEDS: atenolol 25mg tablet PO SCH (18:26)
[2024-07-26] MEDS: tamsulosin 0.4mg capsule PO ONE (19:39)
[2024-07-26] MEDS: LORazepam 1 MG tablet PO PRN (19:42)
[2024-07-27 04:39] VITALS: BP 195/105; PULSE 104; RESP 20; TEMP 97.4
[2024-07-27 06:00] VITALS: BP 118/69; PULSE 67; RESP 16; TEMP 98.5; O2SAT 98
[2024-07-27 06:05] LABS: BASOPHILS % (AUTO) 0.4 % (0-1); EOSINOPHILS # (AUTO) 0.1 X10'3 (0-0.9); EOSINOPHILS % (AUTO) 1.5 % (0-6); HEMOGLOBIN 11.4 g/dl (12.0-16.0); LYMPHOCYTES # (AUTO) 1.5 X10'3 (1.1-4.8); LYMPHOCYTES % (AUTO) 15.8 % (21-51); MEAN CORPUSCULAR HEMOGLOBIN 35.9 PG (27.0-31.0); MEAN CORPUSCULAR HGB CONC 34.5 g/dL (33.0-36.5); MEAN CORPUSCULAR VOLUME 103.9 FL (78-98); MEAN PLATELET VOLUME 8.6 FL (7.4-10.4); MONOCYTES # (AUTO) 0.7 X10'3 (0-0.9); MONOCYTES % (AUTO) 7.2 % (2-12); NEUTROPHILS % (AUTO) 75.1 % (42-75); PLATELET COUNT 242 X10'3 (140-440); RED BLOOD COUNT 3.17 X10'6 (4.20-5.60); WHITE BLOOD COUNT 9.4 X10'3 (4.5-11.0)
[2024-07-27 06:22] LABS: ANION GAP 10 (8-16); BLOOD UREA NITROGEN 4 MG/DL (7-18); BUN/CREATININE RATIO 8.7 (10.0-20.0); CHLORIDE 106 MMOL/L (99-107); CREATINE KINASE 53 U/L (26-192); CREATININE 0.46 MG/DL (0.40-0.90); GLUCOSE 87 MG/DL (70-104); MAGNESIUM 1.7 MG/DL (1.5-2.4); POTASSIUM 3.8 MMOL/L (3.5-5.1); SODIUM 144 MMOL/L (135-145); TOTAL CARBON DIOXIDE 27.6 MMOL/L (24-32); eCRCL 127 ML/MIN; eGFR > 90 ML/MIN
[2024-07-27 06:23] LABS: ALANINE AMINOTRANSFERASE 48 U/L (12-78); ALBUMIN 2.4 G/DL (3.4-5.0); ALBUMIN/GLOBULIN RATIO 0.7 (1.1-1.5); ALKALINE PHOSPHATASE 98 IU/L (46-116); ASPARTATE AMINO TRANSFERASE 55 U/L (10-37); BILIRUBIN,TOTAL 0.7 MG/DL (0.1-1.0); TOTAL PROTEIN 5.9 G/DL (6.4-8.2)
[2024-07-27] MEDS: LIDOcaine 1% W/epiNEPHrine 1:100,000 20ml vial SQ ONE (08:55)
[2024-07-27 09:15] VITALS: RESP 16; O2SAT 96
[2024-07-27] MEDS: HYDROcodone/acetaminophen 5mg/325mg tablet PO PRN (11:19)
[2024-07-27 13:55] LABS: BILIRUBIN,URINE NEGATIVE (Neg); CLARITY,URINE CLOUDY (Clear); COLOR,URINE YELLOW (Yellow); GLUCOSE, URINE NEGATIVE (Neg); KETONES,URINE NEGATIVE (Neg); LEUKOCYTE ESTERASE ,URINE MODERATE (Neg); NITRITES, URINE NEGATIVE (Neg); OCCULT BLOOD,URINE MODERATE (Neg); PROTEIN,URINE TRACE mg/dl (Neg)
[2024-07-27 13:55] LABS: GLUCOSE,CSF 62 MG/DL (40-75); TOTAL PROTEIN,CSF 52 MG/DL (15-45)
[2024-07-27 14:01] LABS: APPEARANCE,CSF CLEAR; CSF SUPERNATANT COLOR COLORLESS
[2024-07-27 14:01] LABS: UA COLLECTION TYPE NON-SPECIFIED
[2024-07-27 14:02] LABS: CSF RBC 313 /CU MM (0); CSF VOLUME 4.5 ML; CSF WBC CT 0 /CU MM (0-5); TUBE# COUNTED 3
[2024-07-27 14:02] LABS: BACTERIA,URINE 4+ /HPF (Neg); MUCUS STRANDS NONE SEEN /LPF (Neg); SQUAMOUS EPITHELIAL CELL,UR NONE SEEN /LPF (FEW); TRANSITIONAL EPI CELLS,URINE FEW /HPF; WBC,URINE TNTC /HPF (0-4)
[2024-07-27] MEDS ORDERED: LORazepam 1 MG tablet PO PRN (16:25)
[2024-07-27] MEDS ORDERED: LORazepam 2 mg/ml vial IV PRN (16:25)
[2024-07-27] MEDS: ciprofloxacin 250mg tablet PO SCH (17:09)
[2024-07-27 18:00] VITALS: BP_SYST 130; BP_SYST 135; BP_DIAS 71; BP_DIAS 77; PULSE 74; PULSE 86; RESP 14; RESP 16; TEMP 97.7; TEMP 97.9; O2SAT 98; O2SAT 99
[2024-07-27 20:00] VITALS: RESP 14; O2SAT 98
[2024-07-27 22:00] VITALS: BP 135/77; PULSE 86; RESP 16; TEMP 97.9; O2SAT 99
[2024-07-28] VITALS (7 sets, daily range): BP systolic 130–144; BP diastolic 71–84; PULSE 74–92; RESP 14–20; TEMP 97.6–99.4; O2SAT 95–96
[2024-07-28 06:36] LABS: BASOPHILS % (AUTO) 0.4 % (0-1); EOSINOPHILS # (AUTO) 0.2 X10'3 (0-0.9); EOSINOPHILS % (AUTO) 2.3 % (0-6); HEMATOCRIT 31.2 % (35.0-45.0); HEMOGLOBIN 10.6 g/dl (12.0-16.0); LYMPHOCYTES # (AUTO) 1.3 X10'3 (1.1-4.8); LYMPHOCYTES % (AUTO) 12.7 % (21-51); MEAN CORPUSCULAR HEMOGLOBIN 35.3 PG (27.0-31.0); MEAN CORPUSCULAR VOLUME 103.8 FL (78-98); MEAN PLATELET VOLUME 8.9 FL (7.4-10.4); MONOCYTES # (AUTO) 0.7 X10'3 (0-0.9); MONOCYTES % (AUTO) 6.4 % (2-12); NEUTROPHILS % (AUTO) 78.2 % (42-75); PLATELET COUNT 266 X10'3 (140-440); RED CELL DISTRIBUTION WIDTH 18.3 % (11.5-14.5); WHITE BLOOD COUNT 10.2 X10'3 (4.5-11.0)
[2024-07-28 06:46] LABS: ALANINE AMINOTRANSFERASE 45 U/L (12-78); ALBUMIN 2.3 G/DL (3.4-5.0); ALBUMIN/GLOBULIN RATIO 0.7 (1.1-1.5); ALKALINE PHOSPHATASE 94 IU/L (46-116); ANION GAP 11 (8-16); ASPARTATE AMINO TRANSFERASE 39 U/L (10-37); BILIRUBIN,TOTAL 0.7 MG/DL (0.1-1.0); BLOOD UREA NITROGEN 8 MG/DL (7-18); BUN/CREATININE RATIO 14.3 (10.0-20.0); CHLORIDE 106 MMOL/L (99-107); CREATINE KINASE 29 U/L (26-192); CREATININE 0.56 MG/DL (0.40-0.90); GLUCOSE 91 MG/DL (70-104); MAGNESIUM 1.3 MG/DL (1.5-2.4); POTASSIUM 3.6 MMOL/L (3.5-5.1); SODIUM 144 MMOL/L (135-145); TOTAL CARBON DIOXIDE 27.1 MMOL/L (24-32); TOTAL PROTEIN 5.7 G/DL (6.4-8.2); eCRCL 104 ML/MIN; eGFR > 90 ML/MIN
[2024-07-28] MEDS: thiamine 100mg tablet PO SCH (08:08)
[2024-07-28] MEDS: folic acid 1mg tablet PO SCH (08:08)
[2024-07-28] MEDS ORDERED: magnesium sulf-water 2g/50mL 50 ML IV PRN (12:30)
[2024-07-28] MEDS ORDERED: magnesium sulf-water 4G/100mL 100 ML IV PRN (12:30)
[2024-07-28] MEDS: magnesium Cl slow-release 64mg tablet PO PRN (13:17)
[2024-07-29] VITALS (7 sets, daily range): BP systolic 97–132; BP diastolic 63–78; PULSE 62–76; RESP 13–18; TEMP 97.3–98.5; O2SAT 96–98
[2024-07-29 10:12] LABS: BASOPHILS % (AUTO) 0.7 % (0-1); EOSINOPHILS # (AUTO) 0.3 X10'3 (0-0.9); EOSINOPHILS % (AUTO) 4.7 % (0-6); HEMATOCRIT 31.5 % (35.0-45.0); HEMOGLOBIN 10.5 g/dl (12.0-16.0); LYMPHOCYTES # (AUTO) 1.5 X10'3 (1.1-4.8); LYMPHOCYTES % (AUTO) 23.7 % (21-51); MEAN CORPUSCULAR HEMOGLOBIN 35.1 PG (27.0-31.0); MEAN CORPUSCULAR HGB CONC 33.3 g/dL (33.0-36.5); MEAN CORPUSCULAR VOLUME 105.3 FL (78-98); MEAN PLATELET VOLUME 9.3 FL (7.4-10.4); MONOCYTES # (AUTO) 0.6 X10'3 (0-0.9); MONOCYTES % (AUTO) 10.1 % (2-12); NEUTROPHILS # (AUTO) 3.9 X10'3 (1.8-7.7); NEUTROPHILS % (AUTO) 60.8 % (42-75); PLATELET COUNT 307 X10'3 (140-440); RED CELL DISTRIBUTION WIDTH 18.1 % (11.5-14.5); WHITE BLOOD COUNT 6.4 X10'3 (4.5-11.0)
[2024-07-29 10:38] LABS: ALANINE AMINOTRANSFERASE 49 U/L (12-78); ALBUMIN 2.4 G/DL (3.4-5.0); ALBUMIN/GLOBULIN RATIO 0.7 (1.1-1.5); ALKALINE PHOSPHATASE 90 IU/L (46-116); ANION GAP 10 (8-16); ASPARTATE AMINO TRANSFERASE 48 U/L (10-37); BILIRUBIN,TOTAL 0.5 MG/DL (0.1-1.0); BLOOD UREA NITROGEN 6 MG/DL (7-18); BUN/CREATININE RATIO 12.2 (10.0-20.0); CALCIUM 9.1 MG/DL (8.5-10.1); CHLORIDE 107 MMOL/L (99-107); CREATININE 0.49 MG/DL (0.40-0.90); GLUCOSE 106 MG/DL (70-104); POTASSIUM 3.5 MMOL/L (3.5-5.1); SODIUM 142 MMOL/L (135-145); TOTAL CARBON DIOXIDE 25.2 MMOL/L (24-32); eCRCL 119 ML/MIN; eGFR > 90 ML/MIN
[2024-07-29] MEDS: magnesium sulf-water 2g/50mL 50 ML IV ONE (21:14)
[2024-07-30 05:00] VITALS: O2SAT 98
[2024-07-30 06:50] VITALS: BP 120/63; PULSE 67; RESP 14; TEMP 97.7; O2SAT 96
[2024-07-30 18:00] VITALS: BP 112/72; PULSE 83; RESP 16; TEMP 97.3; O2SAT 99
[2024-07-30 20:00] VITALS: RESP 16; O2SAT 99
[2024-07-30 22:00] VITALS: BP 107/70; PULSE 91; RESP 12; TEMP 96.8; O2SAT 97
[2024-07-31 06:00] VITALS: BP 100/59; PULSE 70; RESP 16; TEMP 95.1; O2SAT 97
[2024-07-31 08:30] VITALS: RESP 16; O2SAT 96
[2024-07-31 10:00] VITALS: BP 100/60; PULSE 86; RESP 18; TEMP 97.2; O2SAT 95
[2024-07-31 18:00] VITALS: BP 101/57; PULSE 85; RESP 16; TEMP 98.1; O2SAT 97
[2024-07-31 20:00] VITALS: RESP 16; O2SAT 97
[2024-07-31 22:00] VITALS: BP 101/52; PULSE 87; RESP 16; TEMP 97.3; O2SAT 98
[2024-08-01 06:00] VITALS: BP 127/76; PULSE 84; RESP 14; TEMP 97.6; O2SAT 96
[2024-08-01 10:00] VITALS: BP 114/71; PULSE 77; RESP 16; TEMP 97.8; O2SAT 96
[2024-08-01 10:10] VITALS: RESP 18; O2SAT 96
[2024-08-01 13:11] LABS: BASOPHILS % (AUTO) 0.7 % (0-1); EOSINOPHILS # (AUTO) 0.1 X10'3 (0-0.9); EOSINOPHILS % (AUTO) 2.3 % (0-6); HEMATOCRIT 31.1 % (35.0-45.0); HEMOGLOBIN 10.7 g/dl (12.0-16.0); LYMPHOCYTES % (AUTO) 17.8 % (21-51); MEAN CORPUSCULAR HEMOGLOBIN 35.7 PG (27.0-31.0); MEAN CORPUSCULAR HGB CONC 34.3 g/dL (33.0-36.5); MEAN CORPUSCULAR VOLUME 104.1 FL (78-98); MONOCYTES # (AUTO) 0.6 X10'3 (0-0.9); MONOCYTES % (AUTO) 10.4 % (2-12); NEUTROPHILS # (AUTO) 3.9 X10'3 (1.8-7.7); NEUTROPHILS % (AUTO) 68.8 % (42-75); PLATELET COUNT 429 X10'3 (140-440); RED BLOOD COUNT 2.98 X10'6 (4.20-5.60); RED CELL DISTRIBUTION WIDTH 17.9 % (11.5-14.5); WHITE BLOOD COUNT 5.7 X10'3 (4.5-11.0)
[2024-08-01 13:23] LABS: ALANINE AMINOTRANSFERASE 48 U/L (12-78); ALBUMIN 2.5 G/DL (3.4-5.0); ALBUMIN/GLOBULIN RATIO 0.7 (1.1-1.5); ALKALINE PHOSPHATASE 74 IU/L (46-116); ANION GAP 9 (8-16); ASPARTATE AMINO TRANSFERASE 35 U/L (10-37); BILIRUBIN,TOTAL 0.4 MG/DL (0.1-1.0); BLOOD UREA NITROGEN 13 MG/DL (7-18); BUN/CREATININE RATIO 20.3 (10.0-20.0); CHLORIDE 109 MMOL/L (99-107); CREATININE 0.64 MG/DL (0.40-0.90); GLUCOSE 107 MG/DL (70-104); POTASSIUM 3.9 MMOL/L (3.5-5.1); SODIUM 142 MMOL/L (135-145); TOTAL CARBON DIOXIDE 24.2 MMOL/L (24-32); TOTAL PROTEIN 6.2 G/DL (6.4-8.2); eCRCL 91 ML/MIN; eGFR > 90 ML/MIN
[2024-08-01 18:00] VITALS: BP 114/90; PULSE 83; RESP 17; TEMP 98.4; O2SAT 97
[2024-08-01 20:00] VITALS: RESP 17; O2SAT 97
[2024-08-01 22:00] VITALS: BP 104/62; PULSE 76; RESP 16; TEMP 97.8; O2SAT 96
[2024-08-02 06:00] VITALS: BP 114/69; PULSE 75; RESP 16; TEMP 98.5; O2SAT 95
[2024-08-02 10:00] VITALS: BP 113/66; PULSE 92; RESP 16; RESP 20; TEMP 97.7; O2SAT 95; O2SAT 96
[2024-08-02 18:00] VITALS: BP 101/54; PULSE 104; RESP 17; TEMP 98; O2SAT 97
[2024-08-02 20:00] VITALS: RESP 17; O2SAT 97
[2024-08-02 22:00] VITALS: BP 92/60; PULSE 85; RESP 16; TEMP 98.2; O2SAT 97
[2024-08-03] VITALS (7 sets, daily range): BP systolic 97–120; BP diastolic 63–77; PULSE 84–104; RESP 16–20; TEMP 97.9–98.3; O2SAT 95–99
[2024-08-04 08:00] VITALS: RESP 18; O2SAT 96
[2024-08-04 08:12] VITALS: BP 127/85; PULSE 75; RESP 20; TEMP 97.5; O2SAT 97
[2024-08-04 10:52] VITALS: BP 104/70; PULSE 79; RESP 18; TEMP 98.5; O2SAT 96
[2024-08-04 18:00] VITALS: BP 116/72; PULSE 85; RESP 16; TEMP 98; O2SAT 97
[2024-08-04 20:00] VITALS: RESP 12; O2SAT 97
[2024-08-04 22:00] VITALS: BP 121/71; PULSE 84; RESP 14; TEMP 96.9; O2SAT 96
[2024-08-05 06:00] VITALS: BP 119/67; PULSE 85; RESP 14; TEMP 97.4; O2SAT 95
[2024-08-05 11:00] VITALS: BP 119/78; PULSE 83; RESP 16; TEMP 98.5; O2SAT 96
[2024-08-05 18:22] VITALS: BP 113/77; PULSE 86; RESP 16; TEMP 97.2; O2SAT 96
[2024-08-05 20:00] VITALS: RESP 16; O2SAT 96
[2024-08-05 22:00] VITALS: BP 103/59; PULSE 67; RESP 16; TEMP 97.3; O2SAT 96
[2024-08-06 02:09] VITALS: O2SAT 96
[2024-08-06 06:00] VITALS: BP 119/77; PULSE 76; RESP 16; TEMP 97.2; O2SAT 96
[2024-08-06 08:46] VITALS: BP_SYST 119; PULSE 76
[2024-08-06 09:16] LABS: BASOPHILS % (AUTO) 0.4 % (0-1); EOSINOPHILS # (AUTO) 0.2 X10'3 (0-0.9); EOSINOPHILS % (AUTO) 2.1 % (0-6); HEMATOCRIT 37.7 % (35.0-45.0); HEMOGLOBIN 12.6 g/dl (12.0-16.0); LYMPHOCYTES # (AUTO) 1.5 X10'3 (1.1-4.8); LYMPHOCYTES % (AUTO) 21.4 % (21-51); MEAN CORPUSCULAR HEMOGLOBIN 34.6 PG (27.0-31.0); MEAN CORPUSCULAR HGB CONC 33.3 g/dL (33.0-36.5); MEAN CORPUSCULAR VOLUME 103.7 FL (78-98); MONOCYTES # (AUTO) 0.4 X10'3 (0-0.9); MONOCYTES % (AUTO) 5.1 % (2-12); NEUTROPHILS # (AUTO) 5.1 X10'3 (1.8-7.7); PLATELET COUNT 548 X10'3 (140-440); RED BLOOD COUNT 3.63 X10'6 (4.20-5.60); RED CELL DISTRIBUTION WIDTH 17.2 % (11.5-14.5); WHITE BLOOD COUNT 7.1 X10'3 (4.5-11.0)
[2024-08-06 09:36] LABS: ALANINE AMINOTRANSFERASE 51 U/L (12-78); ALBUMIN/GLOBULIN RATIO 0.8 (1.1-1.5); ALKALINE PHOSPHATASE 73 IU/L (46-116); ANION GAP 11 (8-16); ASPARTATE AMINO TRANSFERASE 37 U/L (10-37); BILIRUBIN,TOTAL 0.5 MG/DL (0.1-1.0); BLOOD UREA NITROGEN 11 MG/DL (7-18); CALCIUM 9.2 MG/DL (8.5-10.1); CHLORIDE 106 MMOL/L (99-107); CREATININE 0.61 MG/DL (0.40-0.90); GLUCOSE 135 MG/DL (70-104); POTASSIUM 3.9 MMOL/L (3.5-5.1); SODIUM 140 MMOL/L (135-145); TOTAL CARBON DIOXIDE 22.7 MMOL/L (24-32); TOTAL PROTEIN 6.8 G/DL (6.4-8.2); eCRCL 95 ML/MIN; eGFR > 90 ML/MIN
[2024-08-06] MEDS ORDERED: ATEN-168 PO (14:16)
[2024-08-06] MEDS ORDERED: LISI10TA27 PO (14:16)
[2024-08-06] MEDS ORDERED: thiamine tablet PO (14:16)
[2024-08-06] MEDS ORDERED: FOLI1TAB27 PO (14:16)
[2024-08-06] MEDS ORDERED: NOR5T PO (14:16)
== END 2024-08-06 15:25 | disposition home or self-care (01) | DRG 92 ==
LOC: ER 14:34 → EEVIPCON 14:34 → ED HOLD 16:40 → ORTHO 4S 19:29 → SUR 3N 07-25 21:20
PROVIDERS: ADMIT Family Medicine; ATTEND Family Medicine
PROC: 4A00X4Z Measurement of Central Nervous Electrical Activity, External Approach (ICD-10-PCS; principal; 2024-07-25)
PROC: 009U3ZX Drainage of Spinal Canal, Percutaneous Approach, Diagnostic (ICD-10-PCS; 2024-07-27)
DX: G92.9 Unspecified toxic encephalopathy (principal); E87.20 Acidosis, unspecified; N39.0 Urinary tract infection, site not specified; T83.518A Infection and inflammatory reaction due to other urinary catheter, initial encounter; E78.00 Pure hypercholesterolemia, unspecified; F32.A Depression, unspecified; E86.0 Dehydration; D72.829 Elevated white blood cell count, unspecified; E87.6 Hypokalemia; F17.290 Nicotine dependence, other tobacco product, uncomplicated; R62.7 Adult failure to thrive; K76.0 Fatty (change of) liver, not elsewhere classified; I10 Essential (primary) hypertension; M43.16 Spondylolisthesis, lumbar region; M25.511 Pain in right shoulder; M48.061 Spinal stenosis, lumbar region without neurogenic claudication; M47.26 Other spondylosis with radiculopathy, lumbar region; M47.814 Spondylosis without myelopathy or radiculopathy, thoracic region; F10.20 Alcohol dependence, uncomplicated; G62.9 Polyneuropathy, unspecified; Y83.8 Other surgical procedures as the cause of abnormal reaction of the patient, or of later complication, without mention of misadventure at the time of the procedure; Y92.89 Other specified places as the place of occurrence of the external cause; Z88.8 Allergy status to other drugs, medicaments and biological substances; Z91.09 Other allergy status, other than to drugs and biological substances; Z88.1 Allergy status to other antibiotic agents; Z79.899 Other long term (current) drug therapy; Z68.20 Body mass index [BMI] 20.0-20.9, adult; Z85.3 Personal history of malignant neoplasm of breast
CPT/HCPCS: 36415; 70450; 70551; 71045; 72125; 72141; 72146; 72148; 72192; 73030; 73502; 80048; 80053; 80305; 80320; 80329; 81001; 81003; 82140; 82550; 82607; 82945; 82948; 83605; 83735; 84100; 84157; 84484; 85025; 85610; 85651; 86140; 87015; 87040; 87070; 87077; 87081; 87088; 87186; 89051; 92508; 92616; 93005; 95816; 97110; 97116; 97161; 97530; 97535; 99291; A6250; A6258; C1758; G0378; J1650; J3411; J3475; J3480; J3490; J7030; J7040; J7050; J7070; J7120; L0172